=== PATIENT | female | born 1995 | race Caucasian/White ===

== ENCOUNTER 2017-10-24 12:42 | Emergency (ER) | payer MEDICAID, OTHER ==
[~2017-10-24] VITALS: Ht 160 cm; Wt 47.6 kg
[2017-10-24 12:42] VITALS: BP 91/59
== END 2017-10-24 14:22 | disposition home or self-care (01) ==
LOC: ER 12:45
DX: H61.21 Impacted cerumen, right ear (principal); H91.91 Unspecified hearing loss, right ear
CPT/HCPCS: 69210; 99284; A4606; Z7610

== ENCOUNTER 2018-05-19 08:01 | Emergency (ER) | payer MEDICAID, OTHER ==
[~2018-05-19] VITALS: Ht 160 cm; Wt 49.9 kg
--- NOTE | 2018-05-19 08:09 | NUR ---
PRESENT TO ER COMPLAIN OF ABDOMINAL PAIN AND DYSURIA, ALERT AND ORIENTED SHE IS ABLE TO MAKE THINGS KNOWN. BREATHING EVEN AND UNLABORED WITH NO DISTRESS NOTED. AWATING MD ORDERS, WILL CONTINUE TO MONITOR.
--- NOTE | 2018-05-19 08:25 | NUR ---
REVENUE SPECIALIST AT BEDSIDE FOR BLOOD DRAW
[2018-05-19 08:33] LABS: BASOPHILS % (AUTO) 0.7 % (0.0-2.0); EOSINOPHILS % (AUTO) 2.1 % (0.0-6.0); HEMATOCRIT 37 % (33-45); HEMOGLOBIN 12.4 g/dL (11.5-14.8); LYMPHOCYTES # (AUTO) 2.9 /CMM (0.8-4.8); LYMPHOCYTES % (AUTO) 43.8 % (20.0-44.0); MEAN CORPUSCULAR HEMOGLOBIN 29 PG (26.0-33.0); MEAN CORPUSCULAR HGB CONC 34 g/dl (31.0-36.0); MEAN CORPUSCULAR VOLUME 87 fL (82-100); MONOCYTES # (AUTO) 0.7 /CMM (0.1-1.30); MONOCYTES % (AUTO) 10.3 % (2.0-12.0); NEUTROPHILS # (AUTO) 2.8 /CMM (1.8-8.9); NEUTROPHILS % (AUTO) 43.1 % (43.0-81.0); PLATELET COUNT (AUTO) 195 /CMM (150-450); RDW COEFFICIENT OF VARIATION 13.9 (11.5-15.0); RED BLOOD CELL COUNT(AUTO) 4.24 MIL/uL (4.0-5.2); WHITE BLOOD COUNT (AUTO) 6.6 K/uL (4.3-11.0)
[2018-05-19 08:51] LABS: CALCIUM, SERUM 8.3 mg/dL (8.5-10.1); CREATININE 0.6 mg/dL (0.6-1.3); POTASSIUM 3.9 mmol/L (3.5-5.1)
[2018-05-19 08:59] LABS: ALBUMIN 3.1 g/dL (3.4-5.0); BILIRUBIN,DIRECT 0.1 mg/dL (0.0-0.2); BILIRUBIN,TOTAL 0.4 mg/dL (0.2-1.0); TOTAL PROTEIN, SERUM 6.3 g/dL (6.4-8.2)
[2018-05-19 09:27] LABS: APPEARANCE,URINE Slightly Cloudy (CLEAR); BILIRUBIN,URINE Negative (NEGATIVE); BLOOD, URINE Negative Ery/uL (NEGATIVE); COLOR,URINE Yellow (YELLOW); KETONES,URINE Negative (NEGATIVE); LEUKOCYTE ESTERASE ,URINE Negative (NEGATIVE); NITRITE, URINE Negative (NEGATIVE); PROTEIN,URINE Negative (NEGATIVE); UGLUCOSE Negative (NEGATIVE); UROBILINOGEN,URINE 0.2 EU/dL (0.2)
[2018-05-19] MEDS ORDERED: NAPROXEN 250 MG TABLET ONE (09:42)
[2018-05-19] MEDS: NAPROXEN 500 MG TABLET PO SCH ×2 (09:44→09:46)
--- NOTE | 2018-05-19 09:46 | NUR ---
MEDICATION GIVEN ORDERED
--- NOTE | 2018-05-19 09:48 | NUR ---
Patient discharged to home in stable condition. Written and verbal after care instructions given. Patient verbalizes understanding of instruction.
[2018-05-19 09:49] VITALS: BP 109/71
== END 2018-05-19 09:49 | disposition home or self-care (01) ==
LOC: ER 08:03
DX: R10.30 Lower abdominal pain, unspecified (principal); N83.299 Other ovarian cyst, unspecified side
CPT/HCPCS: 36415; 80048-TC; 80076-TC; 81000-TC; 83690-TC; 84703-TC; 85025-TC; A4606; Z7610

== ENCOUNTER 2018-07-12 15:20 | Emergency (ER) | payer MEDICAID, OTHER ==
[~2018-07-12] VITALS: Ht 160 cm; Wt 55.8 kg
[2018-07-12 15:20] VITALS: BP 109/65
== END 2018-07-12 17:09 | disposition home or self-care (01) ==
LOC: ER 15:25
DX: M25.562 Pain in left knee (principal); F10.10 Alcohol abuse, uncomplicated; Y90.9 Presence of alcohol in blood, level not specified; Z60.2 Problems related to living alone
CPT/HCPCS: 73564; 99284; A4606; Z7610

== ENCOUNTER 2024-08-22 17:48 | Emergency (ER) | payer MEDICAID, OTHER ==
[~2024-08-22] VITALS: Ht 160 cm; Wt 54.4 kg
[2024-08-22 17:50] VITALS: BP 111/76; TEMP 98.3; O2SAT 98
[2024-08-22] MEDS ORDERED: HYDROCODONE/APAP 5/325MG TABLET ONE (18:54)
[2024-08-22] MEDS: HYDROCODONE/APAP 5/325MG TABLET PO ONE (18:56)
[2024-08-22] MEDS ORDERED: HYDR-4209 PO (19:03)
== END 2024-08-22 19:45 | disposition home or self-care (01) ==
LOC: ER 17:58
DX: S52.571A Other intraarticular fracture of lower end of right radius, initial encounter for closed fracture (principal); Z87.42 Personal history of other diseases of the female genital tract; Z86.69 Personal history of other diseases of the nervous system and sense organs; Z88.1 Allergy status to other antibiotic agents; Z88.2 Allergy status to sulfonamides; Z60.2 Problems related to living alone; W20.8XXA Other cause of strike by thrown, projected or falling object, initial encounter; Y93.89 Activity, other specified; Y92.810 Car as the place of occurrence of the external cause; Y99.8 Other external cause status
CPT/HCPCS: 73110; 73130-TC

== ENCOUNTER 2025-02-14 01:30 | Emergency (ER) | payer OTHER ==
[~2025-02-14] VITALS: Ht 157.5 cm; Wt 53.5 kg
[~2025-02-14 01:30] MED LIST: HYDR-4209 PO
[2025-02-14 01:35] VITALS: TEMP 98
[2025-02-14 02:15] LABS: CARBON DIOXIDE 29 mmol/L (21-32); CHLORIDE 103 mmol/L (98-107); CREATININE 0.7 mg/dL (0.6-1.3); GLUCOSE 94 mg/dL (74-106); POTASSIUM 3.5 mmol/L (3.5-5.1); SODIUM SERUM 138 mmol/L (136-145); UREA NITROGEN, BLOOD 18 mg/dL (7-18)
[2025-02-14 02:16] LABS: BASOPHILS # (AUTO) 0.1 K/uL (0.0-0.2); BASOPHILS % (AUTO) 0.6 % (0.0-2.0); EOSINOPHILS # (AUTO) 0.1 K/uL (0.0-0.7); EOSINOPHILS % (AUTO) 0.8 % (0.0-6.0); HEMATOCRIT 43 % (33-45); HEMOGLOBIN 14.1 g/dL (11.5-14.8); LYMPHOCYTES # (AUTO) 1.7 K/uL (0.8-4.8); LYMPHOCYTES % (AUTO) 13.7 % (20.0-44.0); MEAN CORPUSCULAR HEMOGLOBIN 28 PG (26.0-33.0); MEAN CORPUSCULAR HGB CONC 33 g/dl (31.0-36.0); MEAN CORPUSCULAR VOLUME 85 fL (82-100); MONOCYTES # (AUTO) 0.8 K/uL (0.1-1.30); MONOCYTES % (AUTO) 6.2 % (2.0-12.0); NEUTROPHILS # (AUTO) 9.9 K/uL (1.8-8.9); NEUTROPHILS % (AUTO) 78.7 % (43.0-81.0); PLATELET COUNT (AUTO) 269 K/uL (150-450); RED BLOOD CELL COUNT(AUTO) 5.05 MIL/uL (4.0-5.2); RED CELL DISTRIBUTION WIDTH 13.5 % (11.5-15.0); WHITE BLOOD COUNT (AUTO) 12.6 K/uL (4.3-11.0)
[2025-02-14 02:29] LABS: PREGNANCY TEST URINE QUAL NEGATIVE (NEGATIVE)
[2025-02-14 02:29] LABS: ALANINE AMINOTRANSFERASE 16 U/L (12-78); ALKALINE PHOSPHATASE 61 U/L (46-116); ASPARTATE AMINOTRANSFERASE 16 U/L (15-37); BILIRUBIN,TOTAL 0.6 mg/dL (0.2-1.0); NT-PRO BNP 43 pg/mL (0-125); TOTAL PROTEIN, SERUM 7.8 g/dL (6.4-8.2)
[2025-02-14 02:34] LABS: APPEARANCE,URINE SLIGHTLY CLOUDY (CLEAR); BILIRUBIN,URINE NEGATIVE (NEGATIVE); BLOOD, URINE 3+ Ery/uL (NEGATIVE); COLOR,URINE YELLOW (YELLOW); KETONES,URINE NEGATIVE (NEGATIVE); LEUKOCYTE ESTERASE ,URINE NEGATIVE (NEGATIVE); NITRITE, URINE NEGATIVE (NEGATIVE); PROTEIN,URINE NEGATIVE (NEGATIVE); UGLUCOSE NEGATIVE (NEGATIVE); UROBILINOGEN,URINE 0.2 EU/dL (0.2)
[2025-02-14 02:34] LABS: ALCOHOL, BLOOD < 3 mg/dL (0-10)
[2025-02-14 02:35] LABS: AMPHETAMINE, URINE NEGATIVE (NEGATIVE); BARBITURATE, URINE NEGATIVE (NEGATIVE); BENZODIAZEPINE, URINE NEGATIVE (NEGATIVE); CANNABINOID, URINE POSITIVE (NEGATIVE); COCCAINE, URINE NEGATIVE (NEGATIVE); OPIATE, URINE NEGATIVE (NEGATIVE); PHENCYCLIDINE SCREEN,URINE NEGATIVE (NEGATIVE)
[2025-02-14 02:38] LABS: BACTERIA,URINE Many /HPF (None Seen); SQUAMOUS EPITHELIAL CELL,UR Many /HPF (None Seen)
[2025-02-14 02:39] LABS: ADD URINE CULTURE YES
[2025-02-14] MEDS ORDERED: ONDANSETRON HCL/PF 4 MG/2 ML VIAL ONE (03:47)
[2025-02-14] MEDS ORDERED: PANTOPRAZOLE 40 MG VIAL ONE (03:47)
[2025-02-14] MEDS: ONDANSETRON HCL/PF - ER 4 MG/2 ML VIAL IV ONE (04:03)
[2025-02-14] MEDS: IV NS 0.9% 1,000 ML IV ONE (04:03)
[2025-02-14] MEDS: PANTOPRAZOLE 40 MG VIAL IV ONE (04:03)
[2025-02-14] MEDS ORDERED: IOHEXOL-300 100 ML VIAL IV ONE (04:21)
[2025-02-14] MEDS ORDERED: IV NS 0.9% 250 ML IV ONE (04:21)
[2025-02-14] MEDS ORDERED: OMEP20TA20 PO (05:48)
[2025-02-14] MEDS ORDERED: ONDA4TAB5 PO (05:48)
[2025-02-14 06:26] VITALS: BP 104/69; O2SAT 100
== END 2025-02-14 06:30 | disposition home or self-care (01) ==
LOC: ER 01:31
DX: R10.13 Epigastric pain (principal); R11.2 Nausea with vomiting, unspecified; R42 Dizziness and giddiness; Z88.1 Allergy status to other antibiotic agents; Z88.2 Allergy status to sulfonamides; Z79.899 Other long term (current) drug therapy; Z60.2 Problems related to living alone; Z98.890 Other specified postprocedural states
CPT/HCPCS: 99285; 96374; 96361; 96375; 93005; 71045; 76705; 74177; 85025; 87086; 83690; 84703; 81001; 36415; 80053; 84484; 83880; 80320; 80307; J2405 ×2; J7030; J7050; J2470; Q9967; G0480